=== PATIENT | male | born 1970 | race Caucasian/White ===

== ENCOUNTER 2018-04-04 10:32 | Emergency (ER) | payer BC, OTHER ==
[2018-04-04 10:42] VITALS: BP 162/79; PULSE 67; TEMP 98; BMI 33.7
--- NOTE | 2018-04-04 11:13 | PDOC ---
History of Present Illness - General Chief Complaint: Back Pain Stated Complaint: BACK PAIN Time Seen by Provider: 04/04/18 11:03 History Source: Patient - History of Present Illness Occurred: reports: other Severity: reports: moderate Pain Location: reports: back Past History - Past Medical History Allergies/Adverse Reactions: Allergies Allergy/AdvReac Type Severity Reaction Status Date / Time No Known Allergies Allergy Verified 04/04/18 10:37 Home Medications: Ambulatory Orders NK [No Known Home Medication] 04/04/18 COPD: No - Immunization History Immunization Up to Date: Yes - Suicide/Smoking/Psychosocial Hx Smoking History: Current every day smoker Have you smoked in the past 12 months: Yes Number of Cigarettes Smoked Daily: 20 Information on smoking cessation initiated: No Hx Alcohol Use: No Drug/Substance Use Hx: No Substance Use Type: None Review of Systems - Review of Systems Constitutional: No: Chills, Fever Respiratory: No: Cough, Shortness of Breath Cardiac (ROS): No: Chest Pain, Palpitations Musculoskeletal: Yes: Back Pain. No: Neck Pain *Physical Exam - Vital Signs Last Vital Signs Temp Pulse Resp BP Pulse Ox 98.0 F 67 18 162/79 100 04/04/18 10:38 04/04/18 10:38 04/04/18 10:38 04/04/18 10:38 04/04/18 10:38 - Physical Exam General Appearance: Yes: Appropriately Dressed. No: Apparent Distress HEENT: positive: Normal Voice Neck: positive: Supple Respiratory/Chest: positive: Lungs Clear, Normal Breath Sounds. negative: Respiratory Distress Cardiovascular: positive: Regular Rate, S1, S2 Musculoskeletal: positive: Vertebral Tenderness (to b/l upper back) Extremity: positive: Normal Inspection Integumentary: positive: Dry, Warm Neurologic: positive: Fully Oriented, Alert, Normal Mood/Affect Medical Decision Making - Medical Decision Making 04/04/18 11:11 47-year-old male, no significant history, but states he has not been to the doctor in many years here with bilateral upper back pain 2 weeks. Unable to describe, mostly intermittent and worse with certain movements. Taking Aleve with no relief. Denies any trauma or other inciting agents. No shortness of breath, chest pain, palpitations, cough or fever. No history of similar pain in the past. See exam Upper back pain Reproducibleb on exam No trauma No e/o pulm/cardiac source -dc w/ ptc meds -has pmd f/u next week *DC/Admit/Observation/Transfer Diagnosis at time of Disposition: Upper back pain - Discharge Dispostion Disposition: HOME Condition at time of disposition: Good - Referrals - Patient Instructions Printed Discharge Instructions: DI for Thoracic Back Pain Additional Instructions: Take Tylenol for pain as needed and follow-up with your doctor on Saturday as already scheduled - Post Discharge Activity
== END 2018-04-04 11:14 | disposition home or self-care (01) ==
LOC: JERFT 10:32
DX: M54.6 Pain in thoracic spine (principal)
CPT/HCPCS: 99281-25

== ENCOUNTER 2021-06-12 19:32 | Emergency (ER) | payer OTHER, BC ==
[2021-06-12 20:27] VITALS: BP 159/101; PULSE 82; TEMP 98.4; BMI 33.5
== END 2021-06-12 21:49 | disposition home or self-care (01) ==
LOC: JERFT 19:32 → JER 19:32 → JERFT 21:49
DX: S93.401A Sprain of unspecified ligament of right ankle, initial encounter (principal); R03.0 Elevated blood-pressure reading, without diagnosis of hypertension; X50.9XXA Other and unspecified overexertion or strenuous movements or postures, initial encounter
CPT/HCPCS: 73610-TC-RT-FY; 73630-TC-RT-FY; 99283-25